=== PATIENT | male | born 1965 | race Caucasian/White ===

== ENCOUNTER 2016-12-11 10:33 | Inpatient (IN) | payer MEDICARE, MEDICAID ==
[~2016-12-11 10:33] MED LIST: BACT800T5 PO; BENZ1TAB PO; CALC600T22 PO; CEPH500C3 PO; CLOZ100 PO; DEPA500T3 PO; DIVA250T8 PO; GEMF600T PO; NAPR-576 PO; OMEGCAP2 PO; PALI234P IM; PAXI20TA PO; SYNT50TA PO; TAB-TAB PO; TOPR50TA PO
[2016-12-11 10:36] VITALS: BP 112/66; PULSE 80; RESP 14; TEMP 98.4
--- NOTE | 2016-12-11 10:48 | PD ---
HPI . right side jaw swelling for about 4 weeks Chief Complaint: Oral / Dental Pain or Problem Time Seen by Provider: 10:48 Travel History International Travel<30 days: No Contact w/Intl Traveler<30days: No Traveled to known affect area: No History of Present Illness HPI 51-year-old male here with complaints of facial swelling on his right jaw for over 4 weeks. Patient says that he developed this progression of swelling that is intermittently tender. He denies any actual tooth pain. He actually lives at an assisted living facility and says that no one has noticed the swelling nor has he had any type of workup. He most recently saw his primary care provider 3 weeks ago. He also sees a psychiatrist weekly. He was brought in for evaluation as the swelling is significantly larger and more noticeable at this time. PFSH Past Medical History Autoimmune Disease: No Blood Disorders: No Anxiety: Yes Depression: Yes Cancer: No Cardiovascular Problems: Yes Chemotherapy: No Diabetes: No Diminished Hearing: No Endocrine: Yes Glaucoma: No Genitourinary: No Hypertension: Yes Immune Disorder: No Musculoskeletal: No Neurologic: No Psychiatric: Yes (SHIV SALCEDO HAVING PHSY ISSUE BUT BERRY NOT KNOW WHAT OR WHY) Reproductive: No Respiratory: No Radiation Therapy: No Schizophrenia: Yes Sickle Cell Disease: No Thyroid Disease: Yes Past Surgical History AICD: No Arteriovenous Shunt: No Insulin Pump: No Joint Replacement: No Oral Surgery: Yes (TOOTH EXTRACTION) Pacemaker: No Other Surgery: No Social History Alcohol Use: No (HX ETOH) Tobacco Use: Yes Substance Use: No Allergies-Medications (Allergen,Severity, Reaction): Coded Allergies: *MDRO Multi-Drug Resistant Organism (Verified Allergy, Unknown, 12/11/16) MRSA Reported Meds & Prescriptions Reported Meds & Active Scripts Active Reported Symbicort Inh (Budesonide/Formoterol Fumarate) 160-4.5 Mcg/Act Aero 1-2 Puff INH BID Invega Sustenna Inj (Paliperidone Palmitate) 234 Mg/1.5 Ml Inj 234 Mg IM EVERY 4 WEEKS Benztropine (Benztropine Mesylate) 0.5 Mg Tab 1 Mg PO HS Depakote ER (Divalproex Sodium) 250 Mg Jaren 250 Mg PO HS Depakote ER (Divalproex Sodium) 500 Mg Jaren 1,000 Mg PO HS Melatonin 3 Mg Tab 3 Mg PO HS Tramadol (Tramadol HCl) 50 Mg Tab 50 Mg PO TID Clozaril (Clozapine) 100 Mg Tab 200 Mg PO HS Clozaril (Clozapine) 100 Mg Tab 100 Mg PO EVERY MORNING Lopid (Gemfibrozil) 600 Mg Tab 600 Mg PO BID Calcium 500+D (Calcium Carbonate-Cholecalciferol) 500-200 Mg-Unit Tab 2 Tab PO DAILY Paxil (Paroxetine HCl) 30 Mg Tab 30 Mg PO DAILY Levothyroxine (Levothyroxine Sodium) 75 Mcg Tab 75 Mcg PO DAILY Toprol XL (Metoprolol Succinate) 50 Mg Tab 50 Mg PO DAILY Multi-Vitamins (Multiple Vitamin) 1 Tab Tab 1 Tab PO DAILY Review of Systems General / Constitutional: No: Fever Eyes: No: Visual changes HENT: Positive: Other (jaw swelling/mass), No: Headaches Cardiovascular: No: Chest Pain or Discomfort Respiratory: No: Shortness of Breath Gastrointestinal: No: Abdominal Pain Genitourinary: No: Dysuria Musculoskeletal: No: Pain Skin: No Rash Neurologic: No: Weakness Psychiatric: No: Depression Endocrine: No: Polydipsia Hematologic/Lymphatic: No: Easy Bruising Physical Exam Narrative GENERAL: AAO x 3, no acute distress, Well-nourished, well-developed patient. SKIN: Warm and dry. No visible rashes or bruising. HEAD: Normocephalic and atraumatic. EYES: No scleral icterus. No injection or drainage. ENT: No nasal drainage noted. Mucous membranes pink. Airway patent. Right lower jaw with firm mass fixed to mandible, no tenderness to palpation, no oropharynx abn other than poor dentition. no visible drainage. NECK: Supple, trachea midline. No JVD. There is some extension of the mass into the neck. non tender. no lymphadenopathy CARDIOVASCULAR: Regular rate and rhythm without murmurs, gallops, or rubs. RESPIRATORY: Breath sounds equal bilaterally. No accessory muscle use. No rhonchi or rales. GASTROINTESTINAL: Abdomen soft, non-tender, nondistended. EXTREMITIES: No cyanosis or edema. BACK: No obvious deformity. NEURO: CN II-12 intact, PSYCH: AAO x 3, normal affect. Data Data Last Documented VS Vital Signs Date Time Temp Pulse Resp B/P (MAP) Pulse Ox O2 Delivery O2 Flow Rate FiO2 12/11/16 10:36 98.4 80 14 112/66 (81) Orders Orders Complete Blood Count With Diff (12/11/16 10:52) Comprehensive Metabolic Panel (12/11/16 10:52) Urinalysis - C+S If Indicated (12/11/16 10:52) Ct Facial Bones W Iv Contrast (12/11/16 ) Iohexol 350 Inj (Omnipaque 350 Inj) (12/11/16 12:44) Radiology Film Requests (12/11/16 ) Admit Order (Ed Use Only) (12/11/16 ) Labs Laboratory Tests Test 12/11/16 11:15 White Blood Count 13.9 TH/MM3 Red Blood Count 4.77 MIL/MM3 Hemoglobin 14.3 GM/DL Hematocrit 43.6 % Mean Corpuscular Volume 91.4 FL Mean Corpuscular Hemoglobin 30.0 PG Mean Corpuscular Hemoglobin Concent 32.8 % Red Cell Distribution Width 16.1 % Platelet Count 502 TH/MM3 Mean Platelet Volume 7.3 FL Neutrophils (%) (Auto) 69.0 % Lymphocytes (%) (Auto) 16.0 % Monocytes (%) (Auto) 10.4 % Eosinophils (%) (Auto) 4.4 % Basophils (%) (Auto) 0.2 % Neutrophils # (Auto) 9.6 TH/MM3 Lymphocytes # (Auto) 2.2 TH/MM3 Monocytes # (Auto) 1.4 TH/MM3 Eosinophils # (Auto) 0.6 TH/MM3 Basophils # (Auto) 0.0 TH/MM3 CBC Comment DIFF FINAL Differential Comment Blood Urea Nitrogen 17 MG/DL Creatinine 1.21 MG/DL Random Glucose 77 MG/DL Total Protein 8.1 GM/DL Albumin 3.0 GM/DL Calcium Level 9.1 MG/DL Alkaline Phosphatase 85 U/L Aspartate Amino Transf (AST/SGOT) 14 U/L Alanine Aminotransferase (ALT/SGPT) 12 U/L Total Bilirubin 0.2 MG/DL Sodium Level 142 MEQ/L Potassium Level 4.4 MEQ/L Chloride Level 107 MEQ/L Carbon Dioxide Level 27.3 MEQ/L Anion Gap 8 MEQ/L Estimat Glomerular Filtration Rate 63 ML/MIN [facility] Medical Decision Making Medical Screen Exam Complete: Yes Emergency Medical Condition: Yes Medical Record Reviewed: Yes Differential Diagnosis tumor, abscess, less likely fracture of mandible Narrative Course 51 yr old male here with c/o jaw swelling x 4 weeks. Case discussed with Dr. Segundo who also examined the patient. Labs and CT scan ordered. Laboratory Tests Test 12/11/16 11:15 White Blood Count 13.9 TH/MM3 Red Blood Count 4.77 MIL/MM3 Hemoglobin 14.3 GM/DL Hematocrit 43.6 % Mean Corpuscular Volume 91.4 FL Mean Corpuscular Hemoglobin 30.0 PG Mean Corpuscular Hemoglobin Concent 32.8 % Red Cell Distribution Width 16.1 % Platelet Count 502 TH/MM3 Mean Platelet Volume 7.3 FL Neutrophils (%) (Auto) 69.0 % Lymphocytes (%) (Auto) 16.0 % Monocytes (%) (Auto) 10.4 % Eosinophils (%) (Auto) 4.4 % Basophils (%) (Auto) 0.2 % Neutrophils # (Auto) 9.6 TH/MM3 Lymphocytes # (Auto) 2.2 TH/MM3 Monocytes # (Auto) 1.4 TH/MM3 Eosinophils # (Auto) 0.6 TH/MM3 Basophils # (Auto) 0.0 TH/MM3 CBC Comment DIFF FINAL Differential Comment Blood Urea Nitrogen 17 MG/DL Creatinine 1.21 MG/DL Random Glucose 77 MG/DL Total Protein 8.1 GM/DL Albumin 3.0 GM/DL Calcium Level 9.1 MG/DL Alkaline Phosphatase 85 U/L Aspartate Amino Transf (AST/SGOT) 14 U/L Alanine Aminotransferase (ALT/SGPT) 12 U/L Total Bilirubin 0.2 MG/DL Sodium Level 142 MEQ/L Potassium Level 4.4 MEQ/L Chloride Level 107 MEQ/L Carbon Dioxide Level 27.3 MEQ/L Anion Gap 8 MEQ/L Estimat Glomerular Filtration Rate 63 ML/MIN Last Impressions Maxillofacial CT 12/11/16 0000 Signed Impressions: Service Date/Time: Sunday, December 11, 2016 12:31 - CONCLUSION: Findings are characteristic of mandibular osteomyelitis with associated adjacent abscess formation. Iban Velázquez MD Patient appears to have an abscess and osteomyelitis. Dr. Segundo has tried reaching out to the maxillofacial surgeons. We have reached out to [facility] to see if they can assist with admission. patient to be transferred to [facility] for maxillofacial surgeon for his mandibular osteomyelitis and abscess. [facility] declined transfer stating not emergent surgical case. Patient admitted to medicine. Dr. Segundo discussed with admitting physician. Diagnosis Primary Impression: Osteomyelitis of mandible Admitting Information Admitting Physician Requests: Admit Condition: Stable Danyell Berry Dec 11, 2016 10:48
[2016-12-11 11:31] LABS: AUTOMATED NEUTROPHIL # 9.6 TH/MM3 (1.8-7.7); BASOPHIL % 0.2 % (0.0-2.0); EOSINOPHIL # 0.6 TH/MM3 (0-0.4); EOSINOPHIL % 4.4 % (0.0-4.0); HEMATOCRIT 43.6 % (39.0-51.0); HEMO FLAGS DIFF FINAL; LYMPHOCYTE # 2.2 TH/MM3 (1.0-4.8); MEAN CELL VOLUME 91.4 FL (80.0-100.0); MEAN CORPUSCULAR HGB CONC 32.8 % (32.0-36.0); MONO % 10.4 % (0.0-8.0); PLATELET COUNT 502 TH/MM3 (150-450); RED BLOOD COUNT 4.77 MIL/MM3 (4.50-5.90); RED CELL DISTRIBUTION WIDTH 16.1 % (11.6-17.2); WHITE BLOOD COUNT 13.9 TH/MM3 (4.0-11.0)
[2016-12-11 11:43] LABS: ANION GAP 8 MEQ/L (5-15); AST (GOT) 14 U/L (15-37); BICARBONATE 27.3 MEQ/L (21.0-32.0); BLOOD UREA NITROGEN 17 MG/DL (7-18); CHLORIDE 107 MEQ/L (98-107); GLOMERULAR FILTRATION RATE 63 ML/MIN (>89); POTASSIUM 4.4 MEQ/L (3.5-5.1); SODIUM (NA) 142 MEQ/L (136-145)
[2016-12-11 11:46] LABS: ALKALINE PHOSPHATASE 85 U/L (45-117); ALT (GPT) 12 U/L (12-78); TOTAL BILIRUBIN ADULT 0.2 MG/DL (0.2-1.0)
[2016-12-11] MEDS ORDERED: IOHEXOL 350 MG/ML 10 ML VIAL (for RAD DIAG) IVCONTRAST ONE (12:44)
--- NOTE | 2016-12-11 12:57 | RADRPT ---
EXAM DATE/TIME: 12/11/2016 12:31 [place] COMPARISON: CT FACIAL BONES W/O CONTRAST, September 01, 2012, 18:12. INDICATIONS : Swelling; evaluate for mass. IV CONTRAST: 75 cc Omnipaque 350 (iohexol) IV RADIATION DOSE: 36.81 CTDIvol (mGy) MEDICAL HISTORY : Cardiovascular disease. Hypertension. SURGICAL HISTORY : None. ENCOUNTER: Initial ACUITY: 1 day PAIN SCALE: 6/10 LOCATION: Right facial TECHNIQUE: Volumetric scanning of the facial bones was performed. Using automated exposure control and adjustme nt of the mA and/or kV according to patient size, radiation dose was kept as low as reasonably achiev able to obtain optimal diagnostic quality images. DICOM format image data is available electronicall y for review and comparison. FINDINGS: The submandibular glands and parotid glands are normal in appearance. There is marked circumferential mucosal thickening in the left maxillary sinus with some polypoid mucosal thickening extending media lly into the nasal cavity abutting the turbinate. There no destructive osseous lesions. Just lateral to the angle of the mandible and inferior to the parotid gland along the inferior and posterior, medi al margin of the masseter muscle in the masseteric space on the right is irregular rim-enhancing bradley ection with enhancing internal septations measuring 3.4 x 1.1 cm in transverse dimension on axial lissa ge 53 with extension laterally and inferiorly, measuring on axial image 57 3.9 x 2 cm in AP transvers e dimension. There is marked thickening and enhancement of the overlying platysma muscle and subcutan eous stranding is noted. 1 cm short axis right submental lymph node is present and a 9 mm short axis node on image 68. There is also abnormal periosteal thickening seen along the body and angle of the m andible on the right characteristic of osteomyelitis. There is a focal cortical breach along the body of the mandible with periosteal thickening on image 56. CONCLUSION: Findings are characteristic of mandibular osteomyelitis with associated adjacent absc ess formation. Iban Velázquez MD on December 11, 2016 at 12:49 Board Certified Radiologist. This report was verified electronically.
[2016-12-11] MEDS ORDERED: MULTTAB4 PO (13:34)
[2016-12-11] MEDS ORDERED: PAXI30TA7 PO (13:34)
[2016-12-11] MEDS ORDERED: CALC1TAB42 PO (13:34)
[2016-12-11] MEDS ORDERED: SYMB160A INH (13:34)
[2016-12-11] MEDS ORDERED: LEVO75TA3 PO (13:34)
[2016-12-11] MEDS ORDERED: TRAM50TA PO (13:34)
[2016-12-11] MEDS ORDERED: GEMF600 PO (13:34)
[2016-12-11] MEDS ORDERED: TOPR50TA PO (13:34)
[2016-12-11] MEDS ORDERED: BENZ0.5T PO (13:34)
[2016-12-11] MEDS ORDERED: MELA0.02 PO (13:34)
[2016-12-11] MEDS ORDERED: CLOZ100 PO ×2 (13:34)
[2016-12-11] MEDS ORDERED: DIVA250ER PO (13:34)
[2016-12-11] MEDS ORDERED: PALI234P IM (13:34)
[2016-12-11] MEDS ORDERED: DEPA500T3 PO (13:34)
--- NOTE | 2016-12-11 14:16 | PD ---
Data Data Last Documented VS Vital Signs Date Time Temp Pulse Resp B/P (MAP) Pulse Ox O2 Delivery O2 Flow Rate FiO2 12/11/16 10:36 98.4 80 14 112/66 (81) Orders Orders Complete Blood Count With Diff (12/11/16 10:52) Comprehensive Metabolic Panel (12/11/16 10:52) Urinalysis - C+S If Indicated (12/11/16 10:52) Ct Facial Bones W Iv Contrast (12/11/16 ) Iohexol 350 Inj (Omnipaque 350 Inj) (12/11/16 12:44) Radiology Film Requests (12/11/16 ) Admit Order (Ed Use Only) (12/11/16 ) Labs Laboratory Tests Test 12/11/16 11:15 White Blood Count 13.9 TH/MM3 Red Blood Count 4.77 MIL/MM3 Hemoglobin 14.3 GM/DL Hematocrit 43.6 % Mean Corpuscular Volume 91.4 FL Mean Corpuscular Hemoglobin 30.0 PG Mean Corpuscular Hemoglobin Concent 32.8 % Red Cell Distribution Width 16.1 % Platelet Count 502 TH/MM3 Mean Platelet Volume 7.3 FL Neutrophils (%) (Auto) 69.0 % Lymphocytes (%) (Auto) 16.0 % Monocytes (%) (Auto) 10.4 % Eosinophils (%) (Auto) 4.4 % Basophils (%) (Auto) 0.2 % Neutrophils # (Auto) 9.6 TH/MM3 Lymphocytes # (Auto) 2.2 TH/MM3 Monocytes # (Auto) 1.4 TH/MM3 Eosinophils # (Auto) 0.6 TH/MM3 Basophils # (Auto) 0.0 TH/MM3 CBC Comment DIFF FINAL Differential Comment Blood Urea Nitrogen 17 MG/DL Creatinine 1.21 MG/DL Random Glucose 77 MG/DL Total Protein 8.1 GM/DL Albumin 3.0 GM/DL Calcium Level 9.1 MG/DL Alkaline Phosphatase 85 U/L Aspartate Amino Transf (AST/SGOT) 14 U/L Alanine Aminotransferase (ALT/SGPT) 12 U/L Total Bilirubin 0.2 MG/DL Sodium Level 142 MEQ/L Potassium Level 4.4 MEQ/L Chloride Level 107 MEQ/L Carbon Dioxide Level 27.3 MEQ/L Anion Gap 8 MEQ/L Estimat Glomerular Filtration Rate 63 ML/MIN [facility] Supervised Visit with KEMI: Yes Narrative Course The history, exam, and medical decision-making in the associated mid-level provider note were completed with my assistance. I reviewed and agree with the findings presented. I attest that I had a [id number] encounter with the patient on the same day, and personally performed and documented my assessment and findings in the medical record. *My assessment and Findings: So 51-year-old male with a history of dental problems schizophrenia presents to the emergency department with 2 days of worsening minimally painful swelling on the right side of his jaw. On exam he has a minimally tender fairly prominent firm swelling in the right angle of the mandible on the jaw. Is no obvious fluctuance or purulent drainage. CT scan shows evidence of osteomyelitis in the mandible with an adjacent abscess. No old manifest online health and fitness coach. Attempted to call Dr. Saucedo or Dr. Duvall anyways to see if they could follow up after IV antibiotics at a later date. No answer. Attempted to admit to medicine, they will not admit patient there is no OMFS. We'll attempt transfer. Spoke with Dr. Perdomo, OMFS at [facility]. States no emergency indications for transfer. Recommend follow-up here. I spoke with Dr. Duvall who did call back , as well as Dr. Gracia, plan for IV antibiotics, possible consult with OMFS here on Monday, possible outpatient follow-up in the office. Julian Segundo MD Dec 11, 2016 14:16
[2016-12-11] MEDS ORDERED: MAGNESIUM HYDROXIDE SUSP 30 ML CUP PO PRN (16:15)
[2016-12-11] MEDS ORDERED: SODIUM CHLORIDE 0.9% FLUSH 10 ML FLUSH IV FLUSH PRN (16:15)
[2016-12-11] MEDS ORDERED: SENNOSIDES 8.6 MG TAB PO PRN (16:15)
[2016-12-11] MEDS ORDERED: ACETAMINOPHEN 325 MG TAB PO PRN (16:15)
[2016-12-11] MEDS ORDERED: BISACODYL 10 MG SUPP RECTAL PRN (16:15)
[2016-12-11] MEDS ORDERED: ONDANSETRON HCL 4 MG/2 ML VIAL IVP PRN (16:15)
[2016-12-11] MEDS ORDERED: NALOXONE HCL 0.4 MG/ML AMP IV PRN (16:15)
[2016-12-11] MEDS ORDERED: LACTULOSE SYRUP 20 GM/30 ML CUP PO PRN (16:15)
[2016-12-11 17:00] VITALS: BP 125/76; PULSE 75; RESP 18; O2SAT 99
[2016-12-11] MEDS: HEPARIN SODIUM - SQ 10,000 UNITS/ML VIAL SQ SCH (17:15)
[2016-12-11] MEDS: AMPICILLIN-SULBACTAM INJ 3 GM in SODIUM CHLORIDE 0.9% INJ 100 ML IV SCH (17:16)
--- NOTE | 2016-12-11 18:07 | HHI.HP ---
[facility] Gianluca Saravia M.D. Admission Diagnosis facial infection, possible abscess, possible osteomyelitis Diagnoses: Chief Complaint: Facial swelling Travel History International Travel<30 Days: No Contact w/Intl Traveler <30 Da: No Traveled to Known Affected Are: No History of Present Illness This is a 51-year-old male with past medical history significant for schizophrenia and previous psychiatric hospitalizations who complains of facial swelling on his right jaw for the past 4 weeks. The patient complains he first noticed some stiffness 2-3 months ago and then noticed that 2-4 weeks ago he is face started to swell. He actually denies any actual tooth pain. He lives in an assisted living facility and he states that no one noticed the swelling or he had not had any type of workup. The patient denies fevers or chills, denies tooth pain, denies abdominal pain, nausea, vomiting. Review of Systems As per history of present illness, other systems reviewed by me and negative. Past Family Social History Past Medical History Schizophrenia Past Surgical History Patient had a tooth extraction Reported Medications Reported Meds & Active Scripts Active Reported Symbicort Inh (Budesonide/Formoterol Fumarate) 160-4.5 Mcg/Act Aero 1-2 Puff INH BID Invega Sustenna Inj (Paliperidone Palmitate) 234 Mg/1.5 Ml Inj 234 Mg IM EVERY 4 WEEKS Benztropine (Benztropine Mesylate) 0.5 Mg Tab 1 Mg PO HS Depakote ER (Divalproex Sodium) 250 Mg Jaren 250 Mg PO HS Depakote ER (Divalproex Sodium) 500 Mg Jaren 1,000 Mg PO HS Melatonin 3 Mg Tab 3 Mg PO HS Tramadol (Tramadol HCl) 50 Mg Tab 50 Mg PO TID Clozaril (Clozapine) 100 Mg Tab 200 Mg PO HS Clozaril (Clozapine) 100 Mg Tab 100 Mg PO EVERY MORNING Lopid (Gemfibrozil) 600 Mg Tab 600 Mg PO BID Calcium 500+D (Calcium Carbonate-Cholecalciferol) 500-200 Mg-Unit Tab 2 Tab PO DAILY Paxil (Paroxetine HCl) 30 Mg Tab 30 Mg PO DAILY Levothyroxine (Levothyroxine Sodium) 75 Mcg Tab 75 Mcg PO DAILY Toprol XL (Metoprolol Succinate) 50 Mg Tab 50 Mg PO DAILY Multi-Vitamins (Multiple Vitamin) 1 Tab Tab 1 Tab PO DAILY Allergies: Coded Allergies: *MDRO Multi-Drug Resistant Organism (Verified Allergy, Unknown, 12/11/16) MRSA Active Ordered Medications Current Medications Medications (Trade) Dose Ordered Sig/Pratik Route Start Time Stop Time Status Last Admin (NS Flush) 2 ml UNSCH PRN IV FLUSH 12/11/16 16:15 (NS Flush) 2 ml BID IV FLUSH 12/11/16 21:00 (Tylenol) 650 mg Q4H PRN PO 12/11/16 16:15 (Zofran Inj) 4 mg Q6H PRN IVP 12/11/16 16:15 (Heparin Inj) 5,000 units Q8H SQ 12/11/16 17:00 12/11/16 17:15 (Narcan Inj) 0.4 mg UNSCH PRN IV 12/11/16 16:15 (Em-Colace) 1 tab BID PO 12/11/16 21:00 (Milk Of Magnesia Liq) 30 ml Q12H PRN PO 12/11/16 16:15 (Senokot) 17.2 mg Q12H PRN PO 12/11/16 16:15 (Dulcolax Supp) 10 mg DAILY PRN RECTAL 12/11/16 16:15 (Lactulose Liq) 30 ml DAILY PRN PO 12/11/16 16:15 Ampicillin Sodium/ Sulbactam Sodium 3 gm/Sodium Chloride 100 ml @ 200 mls/hr Q6H IV 12/11/16 18:00 12/11/16 17:16 Family History Denies family history of diabetes, cancer or heart disease. Social History Patient states he currently smokes 2 packs per day. Admits to occasional alcohol use. Denies illegal drug use. Physical Exam Vital Signs Vital Signs Date Time Temp Pulse Resp B/P (MAP) Pulse Ox O2 Delivery O2 Flow Rate FiO2 12/11/16 17:00 75 18 125/76 (92) 99 Room Air 12/11/16 10:36 98.4 80 14 112/66 (81) Physical Exam GENERAL: This is a well-nourished, well-developed patient, in no apparent distress. SKIN: No rashes, ecchymoses or lesions. Cool and dry. HEAD: Atraumatic. Normocephalic. No temporal or scalp tenderness. There is jaw swelling which is nontender to palpation in the right mandible EYES: Pupils equal round and reactive. Extraocular motions intact. No scleral icterus. No injection or drainage. ENT: Nose without bleeding, purulent drainage or septal hematoma. Throat without erythema, tonsillar hypertrophy or exudate. Uvula midline. Airway patent. NECK: Trachea midline. No JVD or lymphadenopathy. Supple, nontender, no meningeal signs. CARDIOVASCULAR: Regular rate and rhythm without murmurs, gallops, or rubs. RESPIRATORY: Clear to auscultation. Breath sounds equal bilaterally. No wheezes , rales, or rhonchi. GASTROINTESTINAL: Abdomen soft, non-tender, nondistended. No hepato-splenomegaly , or palpable masses. No guarding. MUSCULOSKELETAL: Extremities without clubbing, cyanosis, or edema. No joint tenderness, effusion, or edema noted. No calf tenderness. Negative Homans sign bilaterally. NEUROLOGICAL: Awake and alert. Cranial nerves II through XII intact. Motor and sensory grossly within normal limits. Five out of 5 muscle strength in all muscle groups. Normal speech. Laboratory Laboratory Tests Test 12/11/16 11:15 White Blood Count 13.9 Red Blood Count 4.77 Hemoglobin 14.3 Hematocrit 43.6 Mean Corpuscular Volume 91.4 Mean Corpuscular Hemoglobin 30.0 Mean Corpuscular Hemoglobin Concent 32.8 Red Cell Distribution Width 16.1 Platelet Count 502 Mean Platelet Volume 7.3 Neutrophils (%) (Auto) 69.0 Lymphocytes (%) (Auto) 16.0 Monocytes (%) (Auto) 10.4 Eosinophils (%) (Auto) 4.4 Basophils (%) (Auto) 0.2 Neutrophils # (Auto) 9.6 Lymphocytes # (Auto) 2.2 Monocytes # (Auto) 1.4 Eosinophils # (Auto) 0.6 Basophils # (Auto) 0.0 CBC Comment DIFF FINAL Differential Comment Blood Urea Nitrogen 17 Creatinine 1.21 Random Glucose 77 Total Protein 8.1 Albumin 3.0 Calcium Level 9.1 Alkaline Phosphatase 85 Aspartate Amino Transf (AST/SGOT) 14 Alanine Aminotransferase (ALT/SGPT) 12 Total Bilirubin 0.2 Sodium Level 142 Potassium Level 4.4 Chloride Level 107 Carbon Dioxide Level 27.3 Anion Gap 8 Estimat Glomerular Filtration Rate 63 Result Diagram: 12/11/16 1115 12/11/16 1115 Imaging Last Impressions Maxillofacial CT 12/11/16 0000 Signed Impressions: Service Date/Time: Sunday, December 11, 2016 12:31 - CONCLUSION: Findings are characteristic of mandibular osteomyelitis with associated adjacent abscess formation. Iban Velázquez MD Reviewed by me Blair VTE Risk Assessment Brettrinjennifer VTE Risk Assessment: No/Low Risk (score <= 1) Caprini Risk Assessment Model Point Value = 1 Point Value = 2 Point Value = 3 Point Value = 5 Age 41-60 Minor surgery BMI > 25 kg/m2 Swollen legs Varicose veins or History of unexplained or recurrent spontaneous Oral contraceptives or hormone replacement Sepsis (< 1 month) Serious lung disease, including pneumonia (< 1 month) Abnormal pulmonary function Acute myocardial infarction Congestive heart failure (< 1 month) History of inflammatory bowel disease Medical patient at bed rest Age 61-74 Arthroscopic surgery Major open surgery (> 45 min) Laparoscopic surgery (> 45 min) Malignancy Confined to bed (> 72 hours) Immobilizing plaster cast Central venous access Age >= 75 History of VTE Family history of VTE Factor V Leiden Prothrombin [id number] Lupus anticoagulant Anticardiolipin antibodies Elevated serum homocysteine Heparin-induced thrombocytopenia Other congenital or acquired thrombophilia Stroke (< 1 month) Elective arthroplasty Hip, pelvis, or leg fracture Acute spinal cord injury (< 1 month) Prophylaxis Regimen Total Risk Factor Score Risk Level Prophylaxis Regimen 0-1 Low Early ambulation 2 Moderate Order ONE of the following: *Sequential Compression Device (SCD) *Heparin 5000 units SQ BID 3-4 Higher Order ONE of the following medications: *Heparin 5000 units SQ TID *Enoxaparin/Lovenox 40 mg SQ daily (WT < 150 kg, CrCl > 30 mL/min) *Enoxaparin/Lovenox 30 mg SQ daily (WT < 150 kg, CrCl > 10-29 mL/min) *Enoxaparin/Lovenox 30 mg SQ BID (WT < 150 kg, CrCl > 30 mL/min) AND/OR *Sequential Compression Device (SCD) 5 or more Highest Order ONE of the following medications: *Heparin 5000 units SQ TID (Preferred with Epidurals) *Enoxaparin/Lovenox 40 mg SQ daily (WT < 150 kg, CrCl > 30 mL/min) *Enoxaparin/Lovenox 30 mg SQ daily (WT < 150 kg, CrCl > 10-29 mL/min) *Enoxaparin/Lovenox 30 mg SQ BID (WT < 150 kg, CrCl > 30 mL/min) AND *Sequential Compression Device (SCD) Assessment and Plan Problem List: (1) Osteomyelitis of mandible ICD Code: M27.2 - Inflammatory conditions of jaws Status: Acute (2) Tobacco dependence, continuous Status: Chronic (3) Leukocytosis ICD Code: D72.829 - Elevated white blood cell count, unspecified (4) Mandibular abscess ICD Code: M27.2 - Inflammatory conditions of jaws (5) Chronic schizophrenia Status: Chronic (6) Hypothyroidism ICD Code: E03.9 - Hypothyroidism, unspecified (7) HTN (hypertension) ICD Code: I10 - Essential (primary) hypertension (8) Hypothyroidism ICD Code: E03.9 - Hypothyroidism, unspecified Assessment and Plan Admit the patient to the medical floor Started in IV Unasyn. ID consultation. Oromaxillofacial surgery consultation on monday when surgeon available. Advised smoking cessation and will Rx nicotine patch. Discussed the case with Dr. arriola from emergency department. I explained to him that we don't have maxillofacial surgeon in-house. Dr. arriola stated that he discussed the case with Dr. Duvall and Dr. Gracia both recommended that the patient can be treated with IV antibiotics and the patient was admitted. Continue levothyroxine for hypothyroidism. Will check TSH. Continue gemfibrozil for hyperlipidemia. Will check lipid profile. Continue Depakote, clozapine, in [place] for schizophrenia which seems to be stable. Continue metoprolol succinate 50 minutes by mouth daily. Leukocytosis likely secondary to mandibular some myelitis. Monitor CBC with differential. Code Status Full code Discussed Condition With Patient, Dr Segundo, Dr Gracia. Physician Certification 2 Midnight Certification Type: Admission for Inpatient Services Order for Inpatient Services The services are ordered in accordance with Medicare regulations or non- Medicare payer requirements, as applicable. In the case of services not specified as inpatient-only, they are appropriately provided as inpatient services in accordance with the 2-midnight benchmark. Estimated LOS (days): 2 days is the estimated time the patient will need to remain in the hospital, assuming treatment plan goals are met and no additional complications. Post-Hospital Plan: Home Randal Ramirez MD Dec 11, 2016 18:07
[2016-12-11 20:30] VITALS: BP 104/59; PULSE 69; RESP 17; TEMP 97.4; O2SAT 95
[2016-12-11] MEDS ORDERED: MELATONIN 3 MG PO SCH (21:00)
[2016-12-11] MEDS ORDERED: [UNRECOGNIZED DRUG - OTHER] PO SCH (21:00)
[2016-12-11] MEDS: GEMFIBROZIL 600 MG TAB PO SCH (21:21)
[2016-12-11] MEDS: DOCUSATE SODIUM 50 MG/SENNA 8.6 MG TAB PO SCH (21:21)
[2016-12-11] MEDS: DIVALPROEX SODIUM E.R. 250 MG TAB PO SCH (21:22)
[2016-12-11] MEDS: SODIUM CHLORIDE 0.9% FLUSH 10 ML FLUSH IV FLUSH SCH (21:22)
[2016-12-11] MEDS: BUDESONIDE-FORMOTEROL 160/4.5 MCG INHALER INH SCH (21:22)
[2016-12-11] MEDS: DIVALPROEX SODIUM E.R. 500 MG TAB PO SCH (21:22)
[2016-12-11] MEDS: cloZAPine 100 MG TAB PO SCH (21:23)
[2016-12-11] MEDS: BENZTROPINE MESYLATE 1 MG TAB PO SCH (21:23)
[2016-12-12] VITALS (7 sets, daily range): BP systolic 104–129; BP diastolic 58–70; PULSE 61–77; RESP 15–20; TEMP 97.3–98.6; O2SAT 94–98
[2016-12-12] MEDS: HEPARIN SODIUM - SQ 10,000 UNITS/ML VIAL SQ SCH ×4 (00:03→23:57)
[2016-12-12] MEDS: AMPICILLIN-SULBACTAM INJ 3 GM in SODIUM CHLORIDE 0.9% INJ 100 ML IV SCH ×5 (00:04→23:52)
[2016-12-12] MEDS: LEVOTHYROXINE SODIUM 75 MCG TAB PO SCH (05:50)
[2016-12-12] MEDS: METOPROLOL SUCCINATE 50 MG EXTENDED RELEASE TAB PO SCH (08:36)
[2016-12-12] MEDS: MULTIVITAMIN TAB PO SCH (08:36)
[2016-12-12] MEDS: PARoxetine HCL 20 MG TAB PO SCH (08:36)
[2016-12-12] MEDS: traMADol HCL 50 MG TAB PO SCH ×3 (08:37→16:35)
[2016-12-12] MEDS: GEMFIBROZIL 600 MG TAB PO SCH ×2 (08:37→21:22)
[2016-12-12] MEDS: cloZAPine 100 MG TAB PO SCH ×2 (08:37→21:22)
[2016-12-12] MEDS: SODIUM CHLORIDE 0.9% FLUSH 10 ML FLUSH IV FLUSH SCH ×2 (08:38→21:25)
[2016-12-12] MEDS: CALCIUM/VITAMIN D 250 MG/125 U TAB PO SCH (08:38)
[2016-12-12] MEDS: BUDESONIDE-FORMOTEROL 160/4.5 MCG INHALER INH SCH ×2 (08:38→21:21)
[2016-12-12] MEDS: DOCUSATE SODIUM 50 MG/SENNA 8.6 MG TAB PO SCH ×2 (08:38→21:22)
[2016-12-12 09:42] LABS: AUTOMATED NEUTROPHIL # 6.8 TH/MM3 (1.8-7.7); BASOPHIL % 0.3 % (0.0-2.0); EOSINOPHIL # 0.7 TH/MM3 (0-0.4); HEMATOCRIT 42.4 % (39.0-51.0); HEMO FLAGS DIFF FINAL; LYMPHOCYTE # 2.2 TH/MM3 (1.0-4.8); MEAN CELL VOLUME 89.9 FL (80.0-100.0); MEAN CORPUSCULAR HEMOGLOBIN 30.6 PG (27.0-34.0); MONO % 11.1 % (0.0-8.0); NEUT % 62.6 % (16.0-70.0); PLATELET COUNT 464 TH/MM3 (150-450); RED BLOOD COUNT 4.71 MIL/MM3 (4.50-5.90); RED CELL DISTRIBUTION WIDTH 15.7 % (11.6-17.2); WHITE BLOOD COUNT 10.8 TH/MM3 (4.0-11.0)
[2016-12-12 10:19] LABS: ANION GAP 8 MEQ/L (5-15); AST (GOT) 17 U/L (15-37); BICARBONATE 23.4 MEQ/L (21.0-32.0); BLOOD UREA NITROGEN 18 MG/DL (7-18); CHLORIDE 106 MEQ/L (98-107); GLOMERULAR FILTRATION RATE 76 ML/MIN (>89); POTASSIUM 4.2 MEQ/L (3.5-5.1); SODIUM (NA) 137 MEQ/L (136-145)
[2016-12-12 10:21] LABS: ALT (GPT) 11 U/L (12-78)
[2016-12-12 10:23] LABS: ALKALINE PHOSPHATASE 82 U/L (45-117); TOTAL BILIRUBIN ADULT 0.3 MG/DL (0.2-1.0)
--- NOTE | 2016-12-12 14:07 | PD.ID.CON ---
History of Present Illness Service ID Consult Requested By Levy Reason for Consult mandibular osteo Primary Care Physician Gianluca Saravia M.D. Diagnoses: History of Present Illness 51 yo male with schitzophrenia presents with R sided mandibiular swelling x 3-4 weeks He has s/p remote ipsilateral lower molars extractions He presetned afebrile with mild WBC elevation(13K) CT was done and showed mandibular osteomyelitis with associated adjacent abscess formation. 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 Social History Patient states he currently smokes 2 packs per day. Admits to occasional alcohol use. Denies illegal drug use. [facility] a [facility] Physical Exam Vital Signs Vital Signs Date Time Temp Pulse Resp B/P (MAP) Pulse Ox O2 Delivery O2 Flow Rate FiO2 12/12/16 12:14 98.1 77 20 117/60 (79) 94 12/12/16 08:52 97.8 73 18 112/59 (76) 95 12/12/16 05:49 98.3 67 20 117/58 (77) 98 12/12/16 01:09 98.4 61 20 113/60 (77) 96 12/11/16 20:30 97.4 69 17 104/59 (74) 95 12/11/16 17:57 12/11/16 17:00 75 18 125/76 (92) 99 Room Air Physical Exam CONSTITUTIONAL/GENERAL: This is an adequately nourished patient, in no apparent distress. TUBES/LINES/DRAINS: SKIN: No jaundice, rashes, or lesions. . Skin temperature appropriate. Not diaphoretic. HEAD: Atraumatic. Normocephalic. EYES: Pupils equal and round and reactive. Extraocular motions intact. No scleral icterus. No injection or drainage. Fundi not examined. ENT: Hearing grossly normal. Nose without bleeding or purulent drainage. Oral mucosae without visible erythema, exudates, masses, or lesions. There is promintn swelling in submandibular area on the R , tender to palpation , but no fluctuance No ertyhema noted NECK: Trachea midline. Supple, nontender. CARDIOVASCULAR: Regular rate and rhythm without murmurs, gallops, or rubs. No JVD. Peripheral pulses symmetric. RESPIRATORY/CHEST: Symmetric, unlabored respirations. Clear to auscultation. Breath sounds equal bilaterally. No wheezes, rales, or rhonchi. GASTROINTESTINAL: Abdomen soft, non-tender, nondistended. No hepato-splenomegaly , or palpable masses. No guarding. Bowel sounds present. MUSCULOSKELETAL: Extremities without clubbing, cyanosis, or edema. No calf tenderness. No mottling or clubbing. LYMPHATICS: No palpable cervical or supraclavicular adenopathy. NEUROLOGICAL: Awake and alert. Motor and sensory grossly within normal limits. Follows commands. Clear speech. Moves all extremities. PSYCHIATRIC: No obvious anxiety/depression. no apparent hallucinations or other psychotic thought process. Laboratory Laboratory Tests Test 12/12/16 08:55 White Blood Count 10.8 Red Blood Count 4.71 Hemoglobin 14.4 Hematocrit 42.4 Mean Corpuscular Volume 89.9 Mean Corpuscular Hemoglobin 30.6 Mean Corpuscular Hemoglobin Concent 34.0 Red Cell Distribution Width 15.7 Platelet Count 464 Mean Platelet Volume 8.1 Neutrophils (%) (Auto) 62.6 Lymphocytes (%) (Auto) 20.0 Monocytes (%) (Auto) 11.1 Eosinophils (%) (Auto) 6.0 Basophils (%) (Auto) 0.3 Neutrophils # (Auto) 6.8 Lymphocytes # (Auto) 2.2 Monocytes # (Auto) 1.2 Eosinophils # (Auto) 0.7 Basophils # (Auto) 0.0 CBC Comment DIFF FINAL Differential Comment Blood Urea Nitrogen 18 Creatinine 1.03 Random Glucose 67 Total Protein 7.5 Albumin 2.7 Calcium Level 9.0 Alkaline Phosphatase 82 Aspartate Amino Transf (AST/SGOT) 17 Alanine Aminotransferase (ALT/SGPT) 11 Total Bilirubin 0.3 Sodium Level 137 Potassium Level 4.2 Chloride Level 106 Carbon Dioxide Level 23.4 Anion Gap 8 Estimat Glomerular Filtration Rate 76 Result Diagram: 12/12/16 0855 12/12/16 0855 Imaging Last Impressions Maxillofacial CT 12/11/16 0000 Signed Impressions: Service Date/Time: Sunday, December 11, 2016 12:31 - CONCLUSION: Findings are characteristic of mandibular osteomyelitis with associated adjacent abscess formation. Iban Velázquez MD Assessment and Plan Assessment and Plan R mandibular osteo and submandibular abscess, cw odontogenic process Leukocytosis- 2/2 above REc's cont Unasy definiteve treatment will need involveent of OMFS Discussed Condition With Fawn Aggarwal MD Dec 12, 2016 14:07
--- NOTE | 2016-12-12 15:53 | HHI.PR ---
Subjective Remarks deferred entry patient seen at 12:20 am Patient's mother is at bedside. The patient denies jaw pain, fevers or chills. Denies chest pain or shots of breath Patient's mother concerned that patient has been complaining of back pain frequently, however patient has not complained of back pain since he has been hospitalized. Objective Vitals Vital Signs Date Time Temp Pulse Resp B/P (MAP) Pulse Ox O2 Delivery O2 Flow Rate FiO2 12/12/16 12:14 98.1 77 20 117/60 (79) 94 12/12/16 08:52 97.8 73 18 112/59 (76) 95 12/12/16 05:49 98.3 67 20 117/58 (77) 98 12/12/16 01:09 98.4 61 20 113/60 (77) 96 12/11/16 20:30 97.4 69 17 104/59 (74) 95 12/11/16 17:57 12/11/16 17:00 75 18 125/76 (92) 99 Room Air I/O 12/11/16 12/11/16 12/11/16 12/12/16 12/12/16 12/12/16 07:00 15:00 23:00 07:00 15:00 23:00 Intake Total 480 ml Balance 480 ml Intake Oral 480 ml # Voids 1 3 # Bowel Movements 1 Result Diagram: 12/12/16 0855 12/12/16 0855 Imaging Last Impressions Maxillofacial CT 12/11/16 0000 Signed Impressions: Service Date/Time: Sunday, December 11, 2016 12:31 - CONCLUSION: Findings are characteristic of mandibular osteomyelitis with associated adjacent abscess formation. Iban Velázquez MD Objective Remarks GENERAL: This is a well-nourished, well-developed patient, in no apparent distress. SKIN: No rashes, ecchymoses or lesions. Cool and dry. HEAD: Atraumatic. Normocephalic. No temporal or scalp tenderness. There is jaw swelling which is nontender to palpation in the right mandible EYES: Pupils equal round and reactive. Extraocular motions intact. No scleral icterus. No injection or drainage. ENT: Nose without bleeding, purulent drainage or septal hematoma. Throat without erythema, tonsillar hypertrophy or exudate. Uvula midline. Airway patent. NECK: Trachea midline. No JVD or lymphadenopathy. Supple, nontender, no meningeal signs. CARDIOVASCULAR: Regular rate and rhythm without murmurs, gallops, or rubs. RESPIRATORY: Clear to auscultation. Breath sounds equal bilaterally. No wheezes , rales, or rhonchi. GASTROINTESTINAL: Abdomen soft, non-tender, nondistended. No hepato-splenomegaly , or palpable masses. No guarding. MUSCULOSKELETAL: Extremities without clubbing, cyanosis, or edema. No joint tenderness, effusion, or edema noted. No calf tenderness. Negative Homans sign bilaterally. NEUROLOGICAL: Awake and alert. Cranial nerves II through XII intact. Motor and sensory grossly within normal limits. Five out of 5 muscle strength in all muscle groups. Normal speech. Medications and IVs Current Medications Medications (Trade) Dose Ordered Sig/Pratik Route Start Time Stop Time Status Last Admin (NS Flush) 2 ml UNSCH PRN IV FLUSH 12/11/16 16:15 (NS Flush) 2 ml BID IV FLUSH 12/11/16 21:00 12/12/16 08:38 (Tylenol) 650 mg Q4H PRN PO 12/11/16 16:15 (Zofran Inj) 4 mg Q6H PRN IVP 12/11/16 16:15 (Heparin Inj) 5,000 units Q8H SQ 12/11/16 17:00 12/12/16 08:38 (Narcan Inj) 0.4 mg UNSCH PRN IV 12/11/16 16:15 (Em-Colace) 1 tab BID PO 12/11/16 21:00 12/12/16 08:38 (Milk Of Magnesia Liq) 30 ml Q12H PRN PO 12/11/16 16:15 (Senokot) 17.2 mg Q12H PRN PO 12/11/16 16:15 (Dulcolax Supp) 10 mg DAILY PRN RECTAL 12/11/16 16:15 (Lactulose Liq) 30 ml DAILY PRN PO 12/11/16 16:15 Ampicillin Sodium/ Sulbactam Sodium 3 gm/Sodium Chloride 100 ml @ 200 mls/hr Q6H IV 12/11/16 18:00 12/12/16 11:59 (Cogentin) 1 mg HS PO 12/11/16 21:00 12/11/16 21:23 (Symbicort 160-4.5 Inh) 2 puff BID INH 12/11/16 21:00 12/12/16 08:38 (Clozaril) 100 mg DAILY PO 12/12/16 09:00 12/12/16 08:37 (Clozaril) 200 mg HS PO 12/11/16 21:00 12/11/16 21:23 (Depakote Er) 250 mg HS PO 12/11/16 21:00 12/11/16 21:22 (Depakote Er) 1,000 mg HS PO 12/11/16 21:00 12/11/16 21:22 (Lopid) 600 mg BID PO 12/11/16 21:00 12/12/16 08:37 (Synthroid) 75 mcg DAILY@0600 PO 12/12/16 06:00 12/12/16 05:50 (Toprol Xl) 50 mg DAILY PO 12/12/16 09:00 12/12/16 08:36 (Ultram) 50 mg TID PO 12/12/16 09:00 12/12/16 12:00 (Oscal-D 250-125) 1,000 mg DAILY PO 12/12/16 09:00 12/12/16 08:38 Patient Own Medication PT OWN MED: MELATO... HS PO 12/11/16 21:00 Future Hold (Theragran) 1 tab DAILY PO 12/12/16 09:00 12/12/16 08:36 (Paxil) 30 mg DAILY PO 12/12/16 09:00 12/12/16 08:36 A/P Problem List: (1) Mandibular abscess ICD Code: M27.2 - Inflammatory conditions of jaws Plan: The patient was admitted to the medical floor and started on IV Unasyn. ID consulted, recommendations appreciated. OMFS consultation will be placed in a.m. since there is no surgeon guidance and control system engineer today. As discussed with ED physician - Dr Segundo, the case was discussed with Dr. Duvall. (2) Osteomyelitis of mandible ICD Code: M27.2 - Inflammatory conditions of jaws Status: Acute Plan: As above (3) Tobacco dependence, continuous Status: Chronic Plan: Will place on nicotine patch. (4) Leukocytosis ICD Code: D72.829 - Elevated white blood cell count, unspecified Plan: Likely secondary to stomatitis and mandibular abscess. The UVC trending down from 13.9 K to 10.8 K. Continue to monitor CBC with differential. (5) Chronic schizophrenia Status: Chronic Plan: Seems to be stable, continue Depakote, cholesterol, paroxetine. Patient is on Invega every 4 weeks. (6) Hypothyroidism ICD Code: E03.9 - Hypothyroidism, unspecified Plan: Continue levothyroxine. We'll check TSH. (7) HTN (hypertension) ICD Code: I10 - Essential (primary) hypertension Plan: Stable. Continue metoprolol succinate 50 mg by mouth daily. Assessment and Plan DVT prophylaxis:On SCDs, encourage ambulation. Discharge Planning Continue to monitor in the medical floor. Problem Qualifiers (1) Hypothyroidism: Qualified Codes: E03.9 - Hypothyroidism, unspecified (2) HTN (hypertension): Qualified Codes: I10 - Essential (primary) hypertension Randal Ramirez MD Dec 12, 2016 15:53
--- NOTE | 2016-12-12 20:09 | EKG ---
Date Performed: 12/11/2016 Time Performed: 20:05:50 PTAGE: 51 years EKG: Sinus rhythm POSSIBLE LEFT ATRIAL ENLARGEMENT INCOMPLETE RIGHT BUNDLE BRANCH BLOCK MODERATE T-WAVE ABNORMALITY, C ONSIDER ANTERIOR ISCHEMIA ABNORMAL ECG PREVIOUS TRACING : 01/09/2015 22.32 DOCTOR: Jarek Shannon Interpretating Date/Time 12/12/2016 20:05:28
[2016-12-12] MEDS: BENZTROPINE MESYLATE 1 MG TAB PO SCH (21:22)
[2016-12-12] MEDS: DIVALPROEX SODIUM E.R. 250 MG TAB PO SCH (21:22)
[2016-12-12] MEDS: DIVALPROEX SODIUM E.R. 500 MG TAB PO SCH (21:22)
[2016-12-13 03:30] VITALS: BP 111/64; PULSE 65; RESP 16; TEMP 97.9; O2SAT 95
[2016-12-13] MEDS: AMPICILLIN-SULBACTAM INJ 3 GM in SODIUM CHLORIDE 0.9% INJ 100 ML IV SCH ×3 (05:25→17:21)
[2016-12-13] MEDS: LEVOTHYROXINE SODIUM 75 MCG TAB PO SCH (05:25)
[2016-12-13 08:16] VITALS: BP 110/69; PULSE 66; RESP 20; TEMP 98; O2SAT 97
[2016-12-13] MEDS: SODIUM CHLORIDE 0.9% FLUSH 10 ML FLUSH IV FLUSH SCH ×2 (09:00→22:57)
[2016-12-13] MEDS: cloZAPine 100 MG TAB PO SCH ×2 (09:14→22:56)
[2016-12-13] MEDS: METOPROLOL SUCCINATE 50 MG EXTENDED RELEASE TAB PO SCH (09:14)
[2016-12-13] MEDS: BUDESONIDE-FORMOTEROL 160/4.5 MCG INHALER INH SCH ×2 (09:14→22:57)
[2016-12-13] MEDS: GEMFIBROZIL 600 MG TAB PO SCH ×2 (09:14→22:56)
[2016-12-13] MEDS: CALCIUM/VITAMIN D 250 MG/125 U TAB PO SCH (09:15)
[2016-12-13] MEDS: PARoxetine HCL 20 MG TAB PO SCH (09:15)
[2016-12-13] MEDS: DOCUSATE SODIUM 50 MG/SENNA 8.6 MG TAB PO SCH ×2 (09:15→22:56)
[2016-12-13] MEDS: traMADol HCL 50 MG TAB PO SCH ×3 (09:15→17:22)
[2016-12-13] MEDS: HEPARIN SODIUM - SQ 10,000 UNITS/ML VIAL SQ SCH ×2 (09:16→17:22)
[2016-12-13] MEDS: MULTIVITAMIN TAB PO SCH (09:16)
[2016-12-13 11:47] VITALS: BP 125/72; PULSE 79; RESP 21; TEMP 97.6; O2SAT 95
--- NOTE | 2016-12-13 13:11 | HHI.PR ---
Subjective Remarks Denies fevers/chills stable vital signs afebrile no diarrhea or rash still c/o some pain in jaw Objective Vitals Vital Signs Date Time Temp Pulse Resp B/P (MAP) Pulse Ox O2 Delivery O2 Flow Rate FiO2 12/13/16 11:47 97.6 79 21 125/72 (89) 95 12/13/16 08:16 98.0 66 20 110/69 (83) 97 12/13/16 03:30 97.9 65 16 111/64 (80) 95 12/12/16 23:19 97.8 71 15 121/67 (85) 95 12/12/16 20:59 97.3 71 16 129/70 (89) 96 12/12/16 16:42 98.6 77 18 104/65 (78) 97 I/O 12/12/16 12/12/16 12/12/16 12/13/16 12/13/16 12/13/16 07:00 15:00 23:00 07:00 15:00 23:00 Intake Total 480 ml 100 ml 100 ml Balance 480 ml 100 ml 100 ml Intake Oral 480 ml IV Total 100 ml 100 ml # Voids 1 3 # Bowel Movements 1 Result Diagram: 12/12/16 0855 12/12/16 0855 Imaging Last Impressions Maxillofacial CT 12/11/16 0000 Signed Impressions: Service Date/Time: Sunday, December 11, 2016 12:31 - CONCLUSION: Findings are characteristic of mandibular osteomyelitis with associated adjacent abscess formation. Iban Velázquez MD Objective Remarks GENERAL: This is a well-nourished, well-developed patient, in no apparent distress. SKIN: No rashes, ecchymoses or lesions. Cool and dry. HEAD: Atraumatic. Normocephalic. No temporal or scalp tenderness. There is jaw swelling which is nontender to palpation in the right mandible EYES: Pupils equal round and reactive. Extraocular motions intact. No scleral icterus. No injection or drainage. ENT: Nose without bleeding, purulent drainage or septal hematoma. Throat without erythema, tonsillar hypertrophy or exudate. Uvula midline. Airway patent. NECK: Trachea midline. No JVD or lymphadenopathy. Supple, nontender, no meningeal signs. CARDIOVASCULAR: Regular rate and rhythm without murmurs, gallops, or rubs. RESPIRATORY: Clear to auscultation. Breath sounds equal bilaterally. No wheezes , rales, or rhonchi. GASTROINTESTINAL: Abdomen soft, non-tender, nondistended. No hepato-splenomegaly , or palpable masses. No guarding. MUSCULOSKELETAL: Extremities without clubbing, cyanosis, or edema. No joint tenderness, effusion, or edema noted. No calf tenderness. Negative Homans sign bilaterally. NEUROLOGICAL: Awake and alert. Cranial nerves II through XII intact. Motor and sensory grossly within normal limits. Five out of 5 muscle strength in all muscle groups. Normal speech. Medications and IVs Current Medications Medications (Trade) Dose Ordered Sig/Pratik Route Start Time Stop Time Status Last Admin (NS Flush) 2 ml UNSCH PRN IV FLUSH 12/11/16 16:15 (NS Flush) 2 ml BID IV FLUSH 12/11/16 21:00 12/13/16 09:00 (Tylenol) 650 mg Q4H PRN PO 12/11/16 16:15 (Zofran Inj) 4 mg Q6H PRN IVP 12/11/16 16:15 (Heparin Inj) 5,000 units Q8H SQ 12/11/16 17:00 12/13/16 09:16 (Narcan Inj) 0.4 mg UNSCH PRN IV 12/11/16 16:15 (Em-Colace) 1 tab BID PO 12/11/16 21:00 12/13/16 09:15 (Milk Of Magnesia Liq) 30 ml Q12H PRN PO 12/11/16 16:15 (Senokot) 17.2 mg Q12H PRN PO 12/11/16 16:15 (Dulcolax Supp) 10 mg DAILY PRN RECTAL 12/11/16 16:15 (Lactulose Liq) 30 ml DAILY PRN PO 12/11/16 16:15 Ampicillin Sodium/ Sulbactam Sodium 3 gm/Sodium Chloride 100 ml @ 200 mls/hr Q6H IV 12/11/16 18:00 12/13/16 11:53 (Cogentin) 1 mg HS PO 12/11/16 21:00 12/12/16 21:22 (Symbicort 160-4.5 Inh) 2 puff BID INH 12/11/16 21:00 12/13/16 09:14 (Clozaril) 100 mg DAILY PO 12/12/16 09:00 12/13/16 09:14 (Clozaril) 200 mg HS PO 12/11/16 21:00 12/12/16 21:22 (Depakote Er) 250 mg HS PO 12/11/16 21:00 12/12/16 21:22 (Depakote Er) 1,000 mg HS PO 12/11/16 21:00 12/12/16 21:22 (Lopid) 600 mg BID PO 12/11/16 21:00 12/13/16 09:14 (Synthroid) 75 mcg DAILY@0600 PO 12/12/16 06:00 12/13/16 05:25 (Toprol Xl) 50 mg DAILY PO 12/12/16 09:00 12/13/16 09:14 (Ultram) 50 mg TID PO 12/12/16 09:00 12/13/16 11:53 (Oscal-D 250-125) 1,000 mg DAILY PO 12/12/16 09:00 12/13/16 09:15 Patient Own Medication PT OWN MED: MELATO... HS PO 12/11/16 21:00 Future Hold (Theragran) 1 tab DAILY PO 12/12/16 09:00 12/13/16 09:16 (Paxil) 30 mg DAILY PO 12/12/16 09:00 12/13/16 09:15 Urinary Catheter: No Vascular Central Line Catheter: No A/P Problem List: (1) Mandibular abscess ICD Code: M27.2 - Inflammatory conditions of jaws Plan: The patient was admitted to the medical floor and started on IV Unasyn. ID consulted, recommendations appreciated. 12/13 cussed the case with Dr. Saucedo, he recommended to treat the odontogenic infection for a couple more days with IV antibiotics and then outpatient follow- up at his office for subsequent tooth extraction. We'll continue antibiotics as per ID recommendations. (2) Osteomyelitis of mandible ICD Code: M27.2 - Inflammatory conditions of jaws Status: Acute Plan: As above (3) Tobacco dependence, continuous Status: Chronic Plan: Will place on nicotine patch. (4) Leukocytosis ICD Code: D72.829 - Elevated white blood cell count, unspecified Plan: Likely secondary to stomatitis and mandibular abscess. The UVC trending down from 13.9 K to 10.8 K. Continue to monitor CBC with differential. (5) Chronic schizophrenia Status: Chronic Plan: Seems to be stable, continue Depakote, cholesterol, paroxetine. Patient is on Invega every 4 weeks. (6) Hypothyroidism ICD Code: E03.9 - Hypothyroidism, unspecified Plan: Continue levothyroxine. We'll check TSH. (7) HTN (hypertension) ICD Code: I10 - Essential (primary) hypertension Assessment and Plan DVT prophylaxis:On SCDs, encourage ambulation. Discharge Planning Continue to monitor in the medical floor. Problem Qualifiers (1) Hypothyroidism: Qualified Codes: E03.9 - Hypothyroidism, unspecified (2) HTN (hypertension): Qualified Codes: I10 - Essential (primary) hypertension Randal Ramirez MD Dec 13, 2016 13:11
[2016-12-13 16:09] VITALS: BP 121/79; PULSE 71; RESP 21; TEMP 97.9; O2SAT 97
[2016-12-13 19:13] LABS: AUTOMATED NEUTROPHIL # 6.4 TH/MM3 (1.8-7.7); BASOPHIL # 0.1 TH/MM3 (0-0.2); BASOPHIL % 0.5 % (0.0-2.0); EOSINOPHIL # 0.8 TH/MM3 (0-0.4); EOSINOPHIL % 7.2 % (0.0-4.0); HEMATOCRIT 43.3 % (39.0-51.0); HEMO FLAGS DIFF FINAL; LYMPH % 24.9 % (9.0-44.0); LYMPHOCYTE # 2.9 TH/MM3 (1.0-4.8); MEAN CELL VOLUME 90.5 FL (80.0-100.0); MEAN CORPUSCULAR HGB CONC 33.2 % (32.0-36.0); MONO % 11.4 % (0.0-8.0); PLATELET COUNT 531 TH/MM3 (150-450); RED BLOOD COUNT 4.78 MIL/MM3 (4.50-5.90); RED CELL DISTRIBUTION WIDTH 16.1 % (11.6-17.2); WHITE BLOOD COUNT 11.5 TH/MM3 (4.0-11.0)
[2016-12-13 19:33] LABS: BICARBONATE 25.7 MEQ/L (21.0-32.0); POTASSIUM 4.2 MEQ/L (3.5-5.1)
[2016-12-13 20:00] VITALS: BP 119/71; PULSE 66; RESP 17; TEMP 98.6; O2SAT 94
[2016-12-13] MEDS: DIVALPROEX SODIUM E.R. 500 MG TAB PO SCH (22:55)
[2016-12-13] MEDS: BENZTROPINE MESYLATE 1 MG TAB PO SCH (22:56)
[2016-12-13] MEDS: DIVALPROEX SODIUM E.R. 250 MG TAB PO SCH (22:57)
[2016-12-14] VITALS: BP 115/65; PULSE 64; RESP 20; TEMP 97.3; O2SAT 96
[2016-12-14] MEDS: AMPICILLIN-SULBACTAM INJ 3 GM in SODIUM CHLORIDE 0.9% INJ 100 ML IV SCH ×4 (01:50→16:32)
[2016-12-14] MEDS: HEPARIN SODIUM - SQ 10,000 UNITS/ML VIAL SQ SCH ×3 (01:51→16:32)
[2016-12-14 04:00] VITALS: BP 115/65; PULSE 64; RESP 20; TEMP 98.8; O2SAT 96
[2016-12-14] MEDS: LEVOTHYROXINE SODIUM 75 MCG TAB PO SCH (06:16)
[2016-12-14 07:58] VITALS: BP 120/71; PULSE 65; RESP 18; TEMP 98.2; O2SAT 97
[2016-12-14] MEDS: METOPROLOL SUCCINATE 50 MG EXTENDED RELEASE TAB PO SCH (08:28)
[2016-12-14] MEDS: MULTIVITAMIN TAB PO SCH (08:29)
[2016-12-14] MEDS: traMADol HCL 50 MG TAB PO SCH ×3 (08:29→16:33)
[2016-12-14] MEDS: CALCIUM/VITAMIN D 250 MG/125 U TAB PO SCH (08:29)
[2016-12-14] MEDS: PARoxetine HCL 20 MG TAB PO SCH (08:30)
[2016-12-14] MEDS: cloZAPine 100 MG TAB PO SCH ×2 (08:30→22:02)
[2016-12-14] MEDS: DOCUSATE SODIUM 50 MG/SENNA 8.6 MG TAB PO SCH ×2 (08:30→22:03)
[2016-12-14] MEDS: GEMFIBROZIL 600 MG TAB PO SCH ×2 (08:30→22:03)
[2016-12-14] MEDS: SODIUM CHLORIDE 0.9% FLUSH 10 ML FLUSH IV FLUSH SCH ×2 (08:30→22:01)
[2016-12-14] MEDS: BUDESONIDE-FORMOTEROL 160/4.5 MCG INHALER INH SCH ×2 (08:31→22:00)
[2016-12-14 12:14] VITALS: BP 121/64; PULSE 73; RESP 18; TEMP 98.1; O2SAT 95
[2016-12-14 16:32] VITALS: BP 108/70; PULSE 71; RESP 18; TEMP 98.1; O2SAT 95
--- NOTE | 2016-12-14 17:18 | HHI.IDPN ---
Subjective Subjective Remarks pr feels much better He has less pain and swelling no fever Antibiotics Unasyn Allergies: Coded Allergies: *MDRO Multi-Drug Resistant Organism (Verified Allergy, Unknown, 12/11/16) MRSA Objective . Vital Signs Date Time Temp Pulse Resp B/P (MAP) Pulse Ox O2 Delivery O2 Flow Rate FiO2 12/14/16 16:32 98.1 71 18 108/70 (83) 95 12/14/16 12:14 98.1 73 18 121/64 (83) 95 12/14/16 07:58 98.2 65 18 120/71 (87) 97 12/14/16 04:00 98.8 64 20 115/65 (82) 96 12/14/16 00:00 97.3 64 20 115/65 (82) 96 12/13/16 20:00 98.6 66 17 119/71 (87) 94 12/13/16 18:30 18 12/14/16 12/14/16 12/15/16 15:00 23:00 07:00 Intake Total 480 ml Balance 480 ml Intake Oral 480 ml # Voids 2 # Bowel Movements 1 . Laboratory Tests Test 12/13/16 17:35 White Blood Count 11.5 TH/MM3 Red Blood Count 4.78 MIL/MM3 Hemoglobin 14.4 GM/DL Hematocrit 43.3 % Mean Corpuscular Volume 90.5 FL Mean Corpuscular Hemoglobin 30.0 PG Mean Corpuscular Hemoglobin Concent 33.2 % Red Cell Distribution Width 16.1 % Platelet Count 531 TH/MM3 Mean Platelet Volume 8.0 FL Neutrophils (%) (Auto) 56.0 % Lymphocytes (%) (Auto) 24.9 % Monocytes (%) (Auto) 11.4 % Eosinophils (%) (Auto) 7.2 % Basophils (%) (Auto) 0.5 % Neutrophils # (Auto) 6.4 TH/MM3 Lymphocytes # (Auto) 2.9 TH/MM3 Monocytes # (Auto) 1.3 TH/MM3 Eosinophils # (Auto) 0.8 TH/MM3 Basophils # (Auto) 0.1 TH/MM3 CBC Comment DIFF FINAL Differential Comment Laboratory Tests Test 12/13/16 17:35 12/14/16 07:42 Blood Urea Nitrogen 17 MG/DL Creatinine 1.18 MG/DL Random Glucose 54 MG/DL Calcium Level 9.0 MG/DL Sodium Level 139 MEQ/L Potassium Level 4.2 MEQ/L Chloride Level 105 MEQ/L Carbon Dioxide Level 25.7 MEQ/L Anion Gap 8 MEQ/L Estimat Glomerular Filtration Rate 65 ML/MIN Thyroid Stimulating Hormone 3rd Gen 5.510 uIU/ML Imaging Last Impressions Maxillofacial CT 12/11/16 0000 Signed Impressions: Service Date/Time: Sunday, December 11, 2016 12:31 - CONCLUSION: Findings are characteristic of mandibular osteomyelitis with associated adjacent abscess formation. Iban Velázquez MD Physical Exam CONSTITUTIONAL/GENERAL: This is an adequately nourished patient, in no apparent distress. TUBES/LINES/DRAINS: SKIN: No jaundice, rashes, or lesions. . Skin temperature appropriate. Not diaphoretic. ENT: Hearing grossly normal. Nose without bleeding or purulent drainage. Oral mucosae without visible erythema, exudates, masses, or lesions. Much less swelling in submandibular area on the R , minimally tender to palpation, but no fluctuance No ertyhema noted R lower molars absent , no edema no drainage Assessment & Plan Remarks R mandibular osteo and submandibular abscess, cw odontogenic process: improving on empiric abx Leukocytosis- 2/2 above: improving REc's cont Unasyn If cont to improve will dc with the intyention to fu with OMFS as o/p OK to switch to augmentin 500 mg po q 8 hrs for another 3-4 weeka and it is essential to see the OMFS within 1-[address] Levy Murray,Fawn Jean Baptiste MD Dec 14, 2016 17:18
--- NOTE | 2016-12-14 17:26 | HHI.PR ---
Subjective Remarks Patient seen at 3:30 pm pain and swelling in face improving denies fevers or chills denies diarrhea or rash Objective Vitals Vital Signs Date Time Temp Pulse Resp B/P (MAP) Pulse Ox O2 Delivery O2 Flow Rate FiO2 12/14/16 16:32 98.1 71 18 108/70 (83) 95 12/14/16 12:14 98.1 73 18 121/64 (83) 95 12/14/16 07:58 98.2 65 18 120/71 (87) 97 12/14/16 04:00 98.8 64 20 115/65 (82) 96 12/14/16 00:00 97.3 64 20 115/65 (82) 96 12/13/16 20:00 98.6 66 17 119/71 (87) 94 12/13/16 18:30 18 I/O 12/13/16 12/13/16 12/13/16 12/14/16 12/14/16 12/14/16 07:00 15:00 23:00 07:00 15:00 23:00 Intake Total 100 ml 480 ml 850 ml 480 ml Output Total 700 ml Balance 100 ml 480 ml 850 ml -700 ml 480 ml Intake Oral 480 ml 850 ml 480 ml IV Total 100 ml Output Urine Total 700 ml # Voids 3 3 2 # Bowel Movements 0 0 1 Result Diagram: 12/13/16 1735 12/13/16 1735 Imaging Last Impressions Maxillofacial CT 12/11/16 0000 Signed Impressions: Service Date/Time: Sunday, December 11, 2016 12:31 - CONCLUSION: Findings are characteristic of mandibular osteomyelitis with associated adjacent abscess formation. Iban Velázquez MD Objective Remarks GENERAL: This is a well-nourished, well-developed patient, in no apparent distress. SKIN: No rashes, ecchymoses or lesions. Cool and dry. HEAD: Atraumatic. Normocephalic. No temporal or scalp tenderness. There is jaw swelling which is nontender to palpation in the right mandible EYES: Pupils equal round and reactive. Extraocular motions intact. No scleral icterus. No injection or drainage. ENT: Nose without bleeding, purulent drainage or septal hematoma. Throat without erythema, tonsillar hypertrophy or exudate. Uvula midline. Airway patent. NECK: Trachea midline. No JVD or lymphadenopathy. Supple, nontender, no meningeal signs. CARDIOVASCULAR: Regular rate and rhythm without murmurs, gallops, or rubs. RESPIRATORY: Clear to auscultation. Breath sounds equal bilaterally. No wheezes , rales, or rhonchi. GASTROINTESTINAL: Abdomen soft, non-tender, nondistended. No hepato-splenomegaly , or palpable masses. No guarding. MUSCULOSKELETAL: Extremities without clubbing, cyanosis, or edema. No joint tenderness, effusion, or edema noted. No calf tenderness. Negative Homans sign bilaterally. NEUROLOGICAL: Awake and alert. Cranial nerves II through XII intact. Motor and sensory grossly within normal limits. Five out of 5 muscle strength in all muscle groups. Normal speech. Medications and IVs Current Medications Medications (Trade) Dose Ordered Sig/Pratik Route Start Time Stop Time Status Last Admin (NS Flush) 2 ml UNSCH PRN IV FLUSH 12/11/16 16:15 (NS Flush) 2 ml BID IV FLUSH 12/11/16 21:00 12/14/16 08:30 (Tylenol) 650 mg Q4H PRN PO 12/11/16 16:15 (Zofran Inj) 4 mg Q6H PRN IVP 12/11/16 16:15 (Heparin Inj) 5,000 units Q8H SQ 12/11/16 17:00 12/14/16 16:32 (Narcan Inj) 0.4 mg UNSCH PRN IV 12/11/16 16:15 (Em-Colace) 1 tab BID PO 12/11/16 21:00 12/14/16 08:30 (Milk Of Magnesia Liq) 30 ml Q12H PRN PO 12/11/16 16:15 (Senokot) 17.2 mg Q12H PRN PO 12/11/16 16:15 (Dulcolax Supp) 10 mg DAILY PRN RECTAL 12/11/16 16:15 (Lactulose Liq) 30 ml DAILY PRN PO 12/11/16 16:15 Ampicillin Sodium/ Sulbactam Sodium 3 gm/Sodium Chloride 100 ml @ 200 mls/hr Q6H IV 12/11/16 18:00 12/14/16 16:32 (Cogentin) 1 mg HS PO 12/11/16 21:00 12/13/16 22:56 (Symbicort 160-4.5 Inh) 2 puff BID INH 12/11/16 21:00 12/14/16 08:31 (Clozaril) 100 mg DAILY PO 12/12/16 09:00 12/14/16 08:30 (Clozaril) 200 mg HS PO 12/11/16 21:00 12/13/16 22:56 (Depakote Er) 250 mg HS PO 12/11/16 21:00 12/13/16 22:57 (Depakote Er) 1,000 mg HS PO 12/11/16 21:00 12/13/16 22:55 (Lopid) 600 mg BID PO 12/11/16 21:00 12/14/16 08:30 (Synthroid) 75 mcg DAILY@0600 PO 12/12/16 06:00 12/14/16 06:16 (Toprol Xl) 50 mg DAILY PO 12/12/16 09:00 12/14/16 08:28 (Ultram) 50 mg TID PO 12/12/16 09:00 12/14/16 16:33 (Oscal-D 250-125) 1,000 mg DAILY PO 12/12/16 09:00 12/14/16 08:29 Patient Own Medication PT OWN MED: MELATO... HS PO 12/11/16 21:00 Future Hold (Theragran) 1 tab DAILY PO 12/12/16 09:00 12/14/16 08:29 (Paxil) 30 mg DAILY PO 12/12/16 09:00 12/14/16 08:30 A/P Problem List: (1) Mandibular abscess ICD Code: M27.2 - Inflammatory conditions of jaws Plan: The patient was admitted to the medical floor and started on IV Unasyn. ID consulted, recommendations appreciated. 12/13 cussed the case with Dr. Panda, he recommended to treat the odontogenic infection for a couple more days with IV antibiotics and then outpatient follow- up at his office for subsequent tooth extraction. We'll continue antibiotics as per ID recommendations. 12/[address] ballard will Dc in am with oral antibiotics to fu as an outpatient w Dr Mott. (2) Osteomyelitis of mandible ICD Code: M27.2 - Inflammatory conditions of jaws Status: Acute Plan: As above (3) Tobacco dependence, continuous Status: Chronic Plan: Will place on nicotine patch. (4) Leukocytosis ICD Code: D72.829 - Elevated white blood cell count, unspecified Plan: Likely secondary to stomatitis and mandibular abscess. The WBC trending down from 13.9 K to 10.8 K. Continue to monitor CBC with differential. (5) Chronic schizophrenia Status: Chronic (6) Hypothyroidism ICD Code: E03.9 - Hypothyroidism, unspecified (7) HTN (hypertension) ICD Code: I10 - Essential (primary) hypertension Assessment and Plan DVT prophylaxis:On SCDs, encourage ambulation. Discharge Planning Continue to monitor in the medical floor. Problem Qualifiers (1) Hypothyroidism: Qualified Codes: E03.9 - Hypothyroidism, unspecified (2) HTN (hypertension): Qualified Codes: I10 - Essential (primary) hypertension Randal Ramirez MD Dec 14, 2016 17:26
[2016-12-14 20:00] VITALS: BP 121/72; PULSE 73; RESP 20; TEMP 98; O2SAT 96
[2016-12-14] MEDS: DIVALPROEX SODIUM E.R. 500 MG TAB PO SCH (21:00)
[2016-12-14] MEDS: DIVALPROEX SODIUM E.R. 250 MG TAB PO SCH (22:01)
[2016-12-14] MEDS: BENZTROPINE MESYLATE 1 MG TAB PO SCH (22:03)
[2016-12-15] VITALS: BP 103/59; PULSE 69; RESP 20; TEMP 98.5; O2SAT 93
[2016-12-15] MEDS: HEPARIN SODIUM - SQ 10,000 UNITS/ML VIAL SQ SCH ×2 (00:33→08:21)
[2016-12-15] MEDS: AMPICILLIN-SULBACTAM INJ 3 GM in SODIUM CHLORIDE 0.9% INJ 100 ML IV SCH ×2 (00:33→05:28)
[2016-12-15 04:00] VITALS: BP 123/75; PULSE 72; RESP 20; TEMP 98.2; O2SAT 96
[2016-12-15] MEDS: LEVOTHYROXINE SODIUM 75 MCG TAB PO SCH (05:27)
[2016-12-15 08:00] VITALS: BP 106/65; PULSE 69; RESP 20; TEMP 97.4; O2SAT 95
[2016-12-15] MEDS: CALCIUM/VITAMIN D 250 MG/125 U TAB PO SCH (08:19)
[2016-12-15] MEDS: GEMFIBROZIL 600 MG TAB PO SCH (08:19)
[2016-12-15] MEDS: BUDESONIDE-FORMOTEROL 160/4.5 MCG INHALER INH SCH (08:19)
[2016-12-15] MEDS: MULTIVITAMIN TAB PO SCH (08:20)
[2016-12-15] MEDS: METOPROLOL SUCCINATE 50 MG EXTENDED RELEASE TAB PO SCH (08:20)
[2016-12-15] MEDS: cloZAPine 100 MG TAB PO SCH (08:20)
[2016-12-15] MEDS: traMADol HCL 50 MG TAB PO SCH (08:21)
[2016-12-15] MEDS: DOCUSATE SODIUM 50 MG/SENNA 8.6 MG TAB PO SCH (08:21)
[2016-12-15] MEDS: PARoxetine HCL 20 MG TAB PO SCH (08:29)
[2016-12-15] MEDS ORDERED: AUGM500T7 PO (12:54)
--- NOTE | 2016-12-15 12:55 | HHI.DCPOC ---
Discharge Care Plan Diagnosis: (1) HTN (hypertension) (2) Hypothyroidism (3) Tobacco dependence, continuous (4) Mandibular abscess (5) Chronic schizophrenia Goals to Promote Your Health * To prevent worsening of your condition and complications * To maintain your health at the optimal level Directions to Meet Your Goals Take your medications as prescribed Follow your dietary instruction Follow activity as directed Keep your appointments as scheduled Take your immunizations and boosters as scheduled If your symptoms worsen call your PCP, if no PCP go to Urgent Care Center or Emergency Room Smoking is Dangerous to Your Health. Avoid second hand smoke Call the 24-hour hour crisis hotline for domestic abuse at Randal Ramirez MD Dec 15, 2016 12:55
[2017-01-31] MEDS ORDERED: CIPR-9 PO (15:27)
== END 2016-12-15 14:03 | disposition home or self-care (01) | DRG 159 ==
LOC: NEPD 10:33 → NEDA 15:15 → N05B 18:02
PROVIDERS: ADMIT Hospitalist; ATTEND Hospitalist
DX: K12.2 Cellulitis and abscess of mouth (principal); F20.9 Schizophrenia, unspecified; I10 Essential (primary) hypertension; M27.2 Inflammatory conditions of jaws; E03.9 Hypothyroidism, unspecified; F17.210 Nicotine dependence, cigarettes, uncomplicated; E78.5 Hyperlipidemia, unspecified; K12.1 Other forms of stomatitis
CPT/HCPCS: 70487; 76937; 80048; 80053; 84443; 85025; 93005; J0295; J1644; Q9967

== ENCOUNTER 2017-01-31 13:49 | Emergency (ER) | payer MEDICAID, MEDICARE ==
[~2017-01-31 13:49] MED LIST changes: +AUGM500T7 PO; -BACT800T5 PO; +BENZ0.5T PO; -BENZ1TAB PO; +CALC1TAB42 PO; -CALC600T22 PO; -CEPH500C3 PO; +DIVA250ER PO; -DIVA250T8 PO; +GEMF600 PO; -GEMF600T PO; +LEVO75TA3 PO; +MELA0.02 PO; +MULTTAB4 PO; -NAPR-576 PO; -OMEGCAP2 PO; -PAXI20TA PO; +PAXI30TA7 PO; +SYMB160A INH; -SYNT50TA PO; -TAB-TAB PO; +TRAM50TA PO
[2017-01-31 13:51] VITALS: BP 101/62; PULSE 78; RESP 16; TEMP 97.7; O2SAT 98
--- NOTE | 2017-01-31 14:03 | PD ---
Physical Exam Date Seen by Provider: Jan 31, 2017 Time Seen by Provider: 14:02 Narrative 51-year-old male presents [place] [facility] with dysuria for the past week. Patient states he felt feverish. Patient has left lower back pain. Patient is a 9 out of 10 pain. History of MRSA. No known drug allergies. Data Data Last Documented VS Vital Signs Date Time Temp Pulse Resp B/P (MAP) Pulse Ox O2 Delivery O2 Flow Rate FiO2 01/31/17 13:51 97.7 78 16 101/62 (75) 98 MDM Medical Record Reviewed: Yes Supervised Visit with KEMI: Yes Narrative Course Vital signs are stable. Urinalysis is ordered. Patient awaiting bed placement. Condition: Stable Boris Carolina Jan 31, 2017 14:03
[2017-01-31 14:52] LABS: BACTERIA, URINE FEW /hpf; BILIRUBIN, URINE NEG (NEG); BLOOD, URINE LARGE (NEG); GLUCOSE,URINE NEG (NEG); KETONE, URINE NEG (NEG); NITRITE,URINE POS (NEG); PH, URINE 6.5 (5.0-8.5); URINE LEUKOCYTE ESTERASE MOD (NEG)
[2017-01-31 14:55] LABS: URINE COLOR LIGHT-RED (YELLW/STRAW)
[2017-01-31] MEDS ORDERED: CIPR-9 PO ×2 (15:27)
--- NOTE | 2017-01-31 15:28 | PD ---
HPI Chief Complaint: Complaint Time Seen by Provider: 14:58 Travel History International Travel<30 days: No Contact w/Intl Traveler<30days: No Traveled to known affect area: No History of Present Illness HPI 51 yo male complains of dysuria and urinary frequency for one year. no hematuria. no flank pain. no fever/chills/nausea/vomiting. onset gradual. timing constant. no modifying factor. PFSH Past Medical History Arthritis: No Asthma: No Autoimmune Disease: No Blood Disorders: No Anxiety: Yes Depression: Yes Heart Rhythm Problems: No Cancer: No Cardiovascular Problems: Yes High Cholesterol: No Chemotherapy: No Congestive Heart Failure: No COPD: Yes ( ) Cerebrovascular Accident: No Diabetes: No Diminished Hearing: No Endocrine: Yes GERD: No Glaucoma: No Genitourinary: No Hypertension: Yes Immune Disorder: No Kidney Stones: No Musculoskeletal: No Neurologic: No Psychiatric: Yes Reproductive: No Respiratory: No Immunizations Current: No Migraines: No Radiation Therapy: No Schizophrenia: Yes Seizures: No Sickle Cell Disease: No Sleep Apnea: No Thyroid Disease: Yes Past Surgical History Abdominal Surgery: No AICD: No Arteriovenous Shunt: No Cardiac Surgery: No Ear Surgery: No Endocrine Surgery: No Eye Surgery: No Genitourinary Surgery: No Gynecologic Surgery: No Insulin Pump: No Joint Replacement: No Oral Surgery: Yes (TOOTH EXTRACTION) Pacemaker: No Thoracic Surgery: No Other Surgery: No Social History Alcohol Use: Yes Tobacco Use: Yes Substance Use: No Allergies-Medications (Allergen,Severity, Reaction): Coded Allergies: *MDRO Multi-Drug Resistant Organism (Verified Allergy, Unknown, 12/11/16) MRSA Reported Meds & Prescriptions Reported Meds & Active Scripts Active Cipro (Ciprofloxacin HCl) 500 Mg Tab 500 Mg PO BID 7 Days Reported Symbicort Inh (Budesonide/Formoterol Fumarate) 160-4.5 Mcg/Act Aero 1-2 Puff INH BID Invega Sustenna Inj (Paliperidone Palmitate) 234 Mg/1.5 Ml Inj 234 Mg IM EVERY 4 WEEKS Benztropine (Benztropine Mesylate) 0.5 Mg Tab 1 Mg PO HS Depakote ER (Divalproex Sodium) 250 Mg Jaren 250 Mg PO HS Depakote ER (Divalproex Sodium) 500 Mg Jaren 1,000 Mg PO HS Melatonin 3 Mg Tab 3 Mg PO HS Tramadol (Tramadol HCl) 50 Mg Tab 50 Mg PO TID Clozaril (Clozapine) 100 Mg Tab 200 Mg PO HS Clozaril (Clozapine) 100 Mg Tab 100 Mg PO EVERY MORNING Lopid (Gemfibrozil) 600 Mg Tab 600 Mg PO BID Calcium 500+D (Calcium Carbonate-Cholecalciferol) 500-200 Mg-Unit Tab 2 Tab PO DAILY Paxil (Paroxetine HCl) 30 Mg Tab 30 Mg PO DAILY Levothyroxine (Levothyroxine Sodium) 75 Mcg Tab 75 Mcg PO DAILY Toprol XL (Metoprolol Succinate) 50 Mg Tab 50 Mg PO DAILY Multi-Vitamins (Multiple Vitamin) 1 Tab Tab 1 Tab PO DAILY Review of Systems Except as stated in HPI: all other systems reviewed are Neg Physical Exam Narrative GENERAL: WNWD 50 yo M, nad SKIN: Warm and dry. HEAD: Atraumatic. Normocephalic. EYES: Pupils equal and round. No scleral icterus. No injection or drainage. ENT: No nasal bleeding or discharge. Mucous membranes pink and moist. NECK: Trachea midline. No JVD. CARDIOVASCULAR: Regular rate and rhythm. RESPIRATORY: No accessory muscle use. Clear to auscultation. Breath sounds equal bilaterally. GASTROINTESTINAL: Abdomen soft, non-tender, nondistended. Hepatic and splenic margins not palpable. MUSCULOSKELETAL: Extremities without clubbing, cyanosis, or edema. No obvious deformities. NEUROLOGICAL: Awake and alert. No obvious cranial nerve deficits. Motor grossly within normal limits. Five out of 5 muscle strength in the arms and legs. Normal speech. PSYCHIATRIC: Appropriate mood and affect; insight and judgment normal. Data Data Last Documented VS Vital Signs Date Time Temp Pulse Resp B/P (MAP) Pulse Ox O2 Delivery O2 Flow Rate FiO2 01/31/17 16:04 01/31/17 13:51 97.7 78 16 98 Vital Signs Date Time Temp Pulse Resp B/P (MAP) Pulse Ox O2 Delivery O2 Flow Rate FiO2 01/31/17 16:04 01/31/17 13:51 97.7 78 16 101/62 (75) 98 Orders Orders Urinalysis - C+S If Indicated (01/31/17 14:04) Urine Culture (01/31/17 14:20) Ciprofloxacin (Cipro) (01/31/17 15:30) Ed Discharge Order (01/31/17 15:28) Labs Laboratory Tests Test 01/31/17 14:20 Urine Color LIGHT-RED Urine Turbidity HAZY Urine pH 6.5 Urine Specific [place] 1.017 Urine Protein 30 mg/dL Urine Glucose (UA) NEG mg/dL Urine Ketones NEG mg/dL Urine Occult Blood LARGE Urine Nitrite POS Urine Bilirubin NEG Urine Urobilinogen LESS THAN 2.0 MG/DL Urine Leukocyte Esterase MOD Urine RBC /hpf Urine WBC 47 /hpf Urine Bacteria FEW /hpf Microscopic Urinalysis Comment CULTURE INDICATED MDM Medical Decision Making Medical Screen Exam Complete: Yes Emergency Medical Condition: Yes Differential Diagnosis prostatitis, cystitis, urinary retention, balanitis Narrative Course UA: pt has UTI cipro script Diagnosis Primary Impression: Cystitis Referrals: Primary Care Physician 2 days Additional Instructions: You have a choice when it comes to health care, and we are glad that you chose [facility]. Hopefully, we have met your expectations on today's visit. You are welcome to return to [facility] at any time, as we are committed to meeting the health care needs of our community. Med/Other Pt SpecificInfo: Prescription(s) given Scripts Ciprofloxacin (Cipro) 500 Mg Tab 500 MG PO BID for Infection for 7 Days, #14 TAB 0 Refills Prov: Perico Alfonso MD 01/31/17 Disposition: 01 DISCHARGE HOME Condition: Stable Perico Alfonso MD Jan 31, 2017 15:27
[2017-01-31] MEDS ORDERED: CIPROFLOXACIN 500 MG TAB PO ONE ×2 (15:30)
== END 2017-01-31 16:05 | disposition home or self-care (01) ==
LOC: NEPD 13:49
DX: N30.90 Cystitis, unspecified without hematuria (principal); B96.20 Unspecified Escherichia coli [E. coli] as the cause of diseases classified elsewhere; I10 Essential (primary) hypertension; J44.9 Chronic obstructive pulmonary disease, unspecified; F41.9 Anxiety disorder, unspecified; F32.9 Major depressive disorder, single episode, unspecified; F20.9 Schizophrenia, unspecified; E07.9 Disorder of thyroid, unspecified; Z72.0 Tobacco use
CPT/HCPCS: 81001; 87077; 87086; 87186; 99283